=== PATIENT | male | born 1990 | race Caucasian/White ===

== ENCOUNTER 2023-12-09 22:16 | Emergency (ER) | payer MEDICAID, SELFPAY ==
[2023-12-09 22:19] VITALS: BP 124/76; PULSE 96; TEMP 37.4; O2SAT 98; BMI 24.2
[2023-12-09 22:22] VITALS: PULSE 91
--- NOTE | 2023-12-09 22:22 | ED.OVERDOSE1 ---
HPI HPI - Overdose General Chief Complaint: Overdose Stated Complaint: FENT OD Time Seen by Provider: 12/09/23 22:19 History of Present Illness HPI Narrative: fentanyl overdose. States he snorts the fentanyl. His parents found him unresponsive but breathing and injected Narcan to which he responded and they called [facility]. He now arrives awake.States he last overdosed a couple of years ago has multiple superficial sores on his chest , abdominal wall and face. 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 States he feels ok now and has no complaint. MD complaint: Reports accidental overdose Related Data Allergies Allergy/AdvReac Type Severity Reaction Status Date / Time No Known Drug Allergies Allergy Verified 12/09/23 22:23 Opioid HPI Opioid Management Most Recent Opioid Data: No Data to Display Review of Systems ROS Status of ROS 10 or more systems reviewed and unremarkable except as noted in history and below Exam Constitutional Vital Signs, click to edit/add: Last Vital Signs Temp 99.4 F 12/09/23 22:19 Pulse 88 12/09/23 23:07 Resp 18 12/09/23 23:07 BP 110/60 12/09/23 23:07 Pulse Ox 98 12/09/23 23:07 O2 Del Method Room Air 12/09/23 23:07 Common normals: no apparent distress, average body habitus, oriented x3, no limitations, healthy appearing, alert and well nourished Eye Common normals: PERRL, EOMs intact bilaterally and conjunctivae normal Respiratory Common normals: normal respiratory effort, no retractions, no use of accessory muscles and clear to auscultation bilaterally Cardio Common normals: regular rate, regular rhythm, S1 normal heart sound and S2 normal heart sound GI Common normals: Normal to inspection, nondistended, normoactive bowel sounds present, soft to palpation and non-tender Extremity Common normals: normal to inspection and full ROM Neuro Common normals: oriented x3, CN's II-XII intact bilaterally, moves all extremities and no focal motor deficits Psych Appearance: grossly normal Course Vital Signs Vital signs: Vital Signs Temperature 99.4 F 12/09/23 22:19 Pulse Rate 96 H 12/09/23 22:19 Respiratory Rate 16 12/09/23 22:19 Blood Pressure 124/76 12/09/23 22:19 Pulse Oximetry 98 12/09/23 22:19 Oxygen Delivery Method Room Air 12/09/23 22:19 Temperature 99.4 F 12/09/23 22:19 Pulse Rate 88 12/09/23 23:07 Respiratory Rate 18 12/09/23 23:07 Blood Pressure 110/60 12/09/23 23:07 Pulse Oximetry 98 12/09/23 23:07 Oxygen Delivery Method Room Air 12/09/23 23:07 MDM - Overdose MDM Narrative Medical decision making narrative: patient with history of fentanyl abuse. States he snorts but does not inject. parents found him breathing and drooling but unresponsive. His father gave him 2 doses of Narcan . one in each nostril and he woke up within 2 minutes. Arrives via [facility] asymptomatic. Labs with normal troponin but does have elevated creat. EKG is normal. Patient remains asymptomatic and discharged home with his parents. Advised to follow up with his doctor regarding his renal function Lab Data Labs: Lab Results 12/09/23 Range/Units 22:27 WBC 13.0 H (4.0-11.0) 10^3/uL RBC 4.31 L (4.70-6.10) 10^6/uL Hgb 12.6 L (14.0-18.0) g/dL Hct 38.1 L (42.0-54.0) % MCV 88.4 (80.0-94.0) fL MCH 29.2 (25.9-34.0) pg MCHC 33.1 (29.9-35.2) g/dL RDW 13.4 (11.0-15.0) % Plt Count 361 (150-450) 10^3/uL MPV 10.2 (9.5-13.5) fL Neut % (Auto) 61.9 (43.0-75.0) % Lymph % (Auto) 27.3 (20.5-60.0) % [place] % (Auto) 9.8 (1.7-12.0) % Eos % (Auto) 0.4 L (0.9-7.0) % Baso % (Auto) 0.3 (0.2-2.0) % Neut # (Auto) 8.0 H (1.4-6.5) 10^3/uL Lymph # (Auto) 3.5 (1.2-3.8) 10^3/uL [place] # (Auto) 1.3 H (0.3-0.8) 10^3/uL Eos # (Auto) 0.1 (0.0-0.7) 10^3/uL Baso # (Auto) 0.0 (0.0-0.1) 10^3/uL Abs Immat Gran (auto) 0.04 H (0.00-0.03) 10^3/uL Imm/Tot Granulo (auto) 0.3 (0.0-0.5) % Sodium 141 (136-145) mmol/L Potassium 4.2 (3.5-5.1) mmol/L Chloride 102 (98-107) mmol/L Carbon Dioxide 26.9 (21.0-32.0) mmol/L Anion Gap 16.3 BUN 18.0 (7.0-18.0) mg/dL Creatinine 1.38 H (0.70-1.30) mg/dL Est GFR ( Amer) >60 (>=60) Est GFR (Non-Af Amer) 59 L (>=60) BUN/Creatinine Ratio 13.0 Glucose 153 H (74-106) mg/dL Calcium 9.1 (8.5-10.1) mg/dL Troponin I High Sens 7.6 (4.0-76.1) pg/mL Discharge Plan Discharge Stand Alone Forms: Portal Instructions Chief Complaint: Overdose Clinical Impression: Acute kidney injury, Drug overdose Patient Disposition: Home, Self-Care Print Language: Serbian Instructions: Acute Kidney Injury (DC), Adult Overdose (ED) Additional Instructions: follow up with Dr Yeager next week for recheck of your kidneys Referrals: Andrade Yeager MD [Primary Care Provider] - 1 week
--- NOTE | 2023-12-09 22:25 | ECG_ITS ---
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
[2023-12-09 22:34] VITALS: O2SAT 96
--- NOTE | 2023-12-09 22:35 | PC.NURSE ---
Face bright red
[2023-12-09 22:36] VITALS: O2SAT 95
[2023-12-09 22:37] LABS: Basophils Percent Auto 0.3 % (0.2-2.0); Eosinophils Absolute Auto 0.1 10^3/uL (0.0-0.7); Eosinophils Percent Auto 0.4 % (0.9-7.0); Hematocrit 38.1 % (42.0-54.0); Hemoglobin 12.6 g/dL (14.0-18.0); Immature Granulocytes Abs Auto 0.04 10^3/uL (0.00-0.03); Immature Granulocytes Pct Auto 0.3 % (0.0-0.5); Lymphocytes Absolute Auto 3.5 10^3/uL (1.2-3.8); Lymphocytes Percent Auto 27.3 % (20.5-60.0); Mean Corpuscular HGB Conc 33.1 g/dL (29.9-35.2); Mean Corpuscular Hemoglobin 29.2 pg (25.9-34.0); Mean Corpuscular Volume 88.4 fL (80.0-94.0); Mean Platelet Volume 10.2 fL (9.5-13.5); Monocytes Absolute Auto 1.3 10^3/uL (0.3-0.8); Monocytes Percent Auto 9.8 % (1.7-12.0); Neutrophils Percent Auto 61.9 % (43.0-75.0); Platelet Count 361 10^3/uL (150-450); Red Blood Count 4.31 10^6/uL (4.70-6.10); Red Cell Distribution Width 13.4 % (11.0-15.0)
[2023-12-09 22:59] LABS: Anion Gap 16.3; Calcium 9.1 mg/dL (8.5-10.1); Carbon Dioxide 26.9 mmol/L (21.0-32.0); Chloride 102 mmol/L (98-107); Estimated GFR (African America >60 (>=60); Estimated GFR (Non-African Ame 59 (>=60); Glucose 153 mg/dL (74-106); Potassium 4.2 mmol/L (3.5-5.1); Sodium 141 mmol/L (136-145); Troponin I High Sensitivity 7.6 pg/mL (4.0-76.1)
[2023-12-09 23:07] VITALS: BP 110/60; PULSE 88; O2SAT 98
== END 2023-12-09 23:18 | disposition home or self-care (01) ==
PROVIDERS: Emergency Provider Internal Medicine; PCP Family Medicine
DX: T40.411A Poisoning by fentanyl or fentanyl analogs, accidental (unintentional), initial encounter (principal); N17.9 Acute kidney failure, unspecified
CPT/HCPCS: 36415; 80048; 84484; 85025; 93005; 99284

== ENCOUNTER 2024-04-27 18:06 | Emergency (ER) | payer MEDICAID, SELFPAY ==
[2024-04-27] VITALS (9 sets, daily range): BP systolic 112–121; BP diastolic 74–77; PULSE 83–111; TEMP 36.8; O2SAT 86–100; BMI 26.7
--- NOTE | 2024-04-27 18:19 | ED.GENADUL1 ---
HPI HPI - General Adult General Chief complaint: Psychiatric Symptoms Stated complaint: OVERDOSE Time Seen by Provider: 04/27/24 18:13 Source: patient Mode of arrival: law enforcement History of Present Illness HPI narrative: The patient to be evaluated in the ER for possible overdose after his father called the EMS. By the time the EMS arrived the patient was still awake he was not given Narcan at any time before arrival to the ER, the patient is mostly hitting himself with his hand and scratching his body, when left alone the patient falls asleep The patient not able to provide any history once he wakes up he just say you No ,to most of the question that he is asked and goes back to sleep Related Data Allergies Allergy/AdvReac Type Severity Reaction Status Date / Time No Known Drug Allergies Allergy Verified 12/09/23 22:23 Opioid HPI Opioid Management Most Recent Opioid Data: No Data to Display Review of Systems ROS Narrative Not able to provide review of system due to the patient clinical condition Exam Narrative Exam Narrative: Nurses notes and vital signs reviewed and patient is not hypoxic. General: Well-appearing and in no apparent distress. Skin: Warm, dry, no pallor noted. No rash. Head: Normocephalic, atraumatic. Neck: Supple, non-tender. Eye: Pupils are equal, round and pinpoint Ears, Nose, Mouth, and Throat: TM are clear, no nasal mucosal hypertrophy. Oral mucosa is moist, no posterior oropharynx erythema, uvula is mid-line Cardiovascular: Regular Rate and Rhythm without murmur, gallop or rub. Respiratory: No accessory muscle use or respiratory distress. Lungs are clear to auscultation, no wheezing, rales or rhonchi Chest Wall: no tenderness Back: No midline thoracic or lumbar vertebral tenderness. No CVA tenderness Musculoskeletal: normal ROM, no calf or popliteal tenderness, no lower extremity edema/swelling GI: Abdomen is soft, non-distended. Normal bowel sounds. No masses appreciated. No tenderness to palpation. No rebound, guarding, or rigidity noted. Neurological: A&O x1. No cranial nerve dysfunction observed. The patient moving upper and lower extremities with no difficulty Constitutional Vital Signs, click to edit/add: Last Vital Signs Temp 98.2 F 04/27/24 18:09 Pulse 111 H 04/27/24 18:09 Resp 8 L 04/27/24 18:09 Pulse Ox 90 L 04/27/24 18:09 O2 Del Method Room Air 04/27/24 18:09 Course Vital Signs Vital signs: Vital Signs Temperature 98.2 F 04/27/24 18:09 Pulse Rate 111 H 04/27/24 18:09 Respiratory Rate 8 L 04/27/24 18:09 Pulse Oximetry 90 L 04/27/24 18:09 Oxygen Delivery Method Room Air 04/27/24 18:09 Temperature 98.2 F 04/27/24 18:09 Pulse Rate 111 H 04/27/24 18:09 Respiratory Rate 8 L 04/27/24 18:09 Pulse Oximetry 90 L 04/27/24 18:09 Oxygen Delivery Method Room Air 04/27/24 18:09 Medical Decision Making MDM Narrative Medical decision making narrative: Upon arrival we did prepare for Narcan nasally but the patient is not desaturating he was just getting monitored Right now the patient will get a blood workup including CBC chemistry and ethanol level While monitoring the patient in case he needed Narcan will be given in case he is desaturating or becoming hypoxic Patient care will be transferred to Dr. Zuleta Discharge Plan Discharge Patient Disposition: Still a Patient
--- NOTE | 2024-04-27 18:20 | ECG_ITS ---
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
[2024-04-27] MEDS: NALOXONE HCL 2 MG/2 ML SYRINGE NS (18:29)
[2024-04-27 18:47] LABS: Basophils Absolute Auto 0.1 10^3/uL (0.0-0.1); Basophils Percent Auto 0.5 % (0.2-2.0); Eosinophils Absolute Auto 0.1 10^3/uL (0.0-0.7); Eosinophils Percent Auto 1.1 % (0.9-7.0); Hematocrit 45.4 % (42.0-54.0); Hemoglobin 15.1 g/dL (14.0-18.0); Immature Granulocytes Abs Auto 0.02 10^3/uL (0.00-0.03); Immature Granulocytes Pct Auto 0.2 % (0.0-0.5); Lymphocytes Absolute Auto 2.8 10^3/uL (1.2-3.8); Lymphocytes Percent Auto 28.8 % (20.5-60.0); Mean Corpuscular HGB Conc 33.3 g/dL (29.9-35.2); Mean Corpuscular Hemoglobin 29.5 pg (25.9-34.0); Mean Corpuscular Volume 88.8 fL (80.0-94.0); Mean Platelet Volume 10.5 fL (9.5-13.5); Monocytes Absolute Auto 0.7 10^3/uL (0.3-0.8); Monocytes Percent Auto 7.2 % (1.7-12.0); Neutrophils Absolute Auto 6.1 10^3/uL (1.4-6.5); Neutrophils Percent Auto 62.2 % (43.0-75.0); Platelet Count 391 10^3/uL (150-450); Red Blood Count 5.11 10^6/uL (4.70-6.10); Red Cell Distribution Width 13.1 % (11.0-15.0); White Blood Count 9.9 10^3/uL (4.0-11.0)
[2024-04-27 19:07] LABS: Alanine Aminotransferase 22 U/L (16-63); Albumin Globulin Ratio 1.2; Albumin Level 4.2 g/dL (3.4-5.0); Alkaline Phosphatase 91 U/L (46-116); Anion Gap 12.3; Aspartate Amino Transferase 20 U/L (15-37); BUN Creatinine Ratio 23.6; Bilirubin Total 0.3 mg/dL (0.2-1.0); Calcium 8.7 mg/dL (8.5-10.1); Carbon Dioxide 28.9 mmol/L (21.0-32.0); Chloride 104 mmol/L (98-107); Estimated GFR (African America >60 (>=60); Estimated GFR (Non-African Ame >60 (>=60); Ethanol 126 mg/dL; Globulin 3.4 g/dL; Glucose 105 mg/dL (74-106); Potassium 4.2 mmol/L (3.5-5.1); Sodium 141 mmol/L (136-145); Total Protein 7.6 g/dL (6.4-8.2)
== END 2024-04-27 20:06 | disposition home or self-care (01) ==
PROVIDERS: Emergency Provider Emergency Medicine; PCP Family Medicine
DX: T50.901A Poisoning by unspecified drugs, medicaments and biological substances, accidental (unintentional), initial encounter (principal)
CPT/HCPCS: 36415; 80053; 80320; 85025; 93005; 99284; J1230

== ENCOUNTER 2024-07-07 19:09 | Emergency (ER) | payer MEDICAID, SELFPAY ==
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
[2024-07-07 19:23] VITALS: PULSE 101; TEMP 36.6; O2SAT 97; BMI 26.6
--- NOTE | 2024-07-07 19:44 | ED_ITS ---
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 He states the symptoms started approximately 1 week ago when he had a peoples on his leg. He states he popped it and afterwards he got several more. He continued to pop them. He has had some drainage from them but is not having any purulent drainage at this time. He denies any fever. He states he has had abscesses in the past but has never had an out break of multiple small abscesses as he does now. He has approximately 10 opened flat pustules on the right lateral lower leg with some local erythema and approximately 15-20 small open flat abscesses on the left lateral leg with local erythema. He denies a history of MRSA. He denies any chest pain or shortness of breath. He denies any body aches. Related Data Home Medications ?Medication ?Instructions ?Recorded ?Confirmed No Known Home Medications 07/07/24 07/07/24 Allergies Allergy/AdvReac Type Severity Reaction Status Date / Time No Known Drug Allergies Allergy Verified 07/07/24 19:23 Review of Systems ROS Status of ROS 10 or more systems reviewed and unremark able except as noted in history and below PFSH PFSH Social History Little interest or pleasure in doing things: not at all Feeling down, depressed, or hopeless: not at all Exam Narrative Exam Narrative: Vital signs and Nursing Notes reviewed: Patient is afebrile, he is mildly tachycardic with a pulse of 101, he is not hypoxic with pulse ox of 97% on room air General: Awake, alert, oriented, no acute distress, lying comfortably on the stretcher HEENT: Normocephalic atraumatic, mucous membranes are moist and pink, eyes are clear, normal conjunctiva, vision is grossly intact Neck: Supple, no meningeal signs, no anterior or posterior cervical lymphadenopathy Chest: Lungs are clear to auscultation with good air entry, there is no wheezing rhonchi or rales appreciated no accessory muscle use, patient is speaking in complete sentences-no chest wall tenderness to palpation CVS: Regular rate and rhythm S1-S2, no murmurs rubs or gallops, pulses are brisk and equal bilaterally ABD: Soft, nondistended, nontender, no rebound guarding or rigidity, bowel sounds are normal, no pulsatile masses appreciated Extremities: On the right lateral lower leg there is a cluster of erythematous open sores which appear to be already expressed small abscesses with local erythema. There is no lymphangitic streaking. There are multiple healed sores on both extremities. The patient also has a cluster on the left lateral thigh where there is approximately 15-20 small open sores with local erythema and induration. No appreciable drainage was able to be expressed for culture purposes Skin: As above in the extremity exam Neuro: No focal deficits Constitutional Vital Signs, click to edit/add: Last Vital Signs Temp 97.8 F 07/07/24 19:23 Pulse 101 H 07/07/24 19:23 Resp 19 07/07/24 19:23 Pulse Ox 97 07/07/24 19:23 O2 Del Method Room Air 07/07/24 19:23 Course Vital Signs Vital signs: Vital Signs Temperature 97.8 F 07/07/24 19:23 Pulse Rate 101 H 07/07/24 19:23 Respiratory Rate 19 07/07/24 19:23 Pulse Oximetry 97 07/07/24 19:23 Oxygen Delivery Method Room Air 07/07/24 19:23 Temperature 97.8 F 07/07/24 19:23 Pulse Rate 101 H 07/07/24 19:23 Respiratory Rate 19 07/07/24 19:23 Pulse Oximetry 97 07/07/24 19:23 Oxygen Delivery Method Room Air 07/07/24 19:23 MDM - Skin/Abscess/Foreign Bdy MDM Narrative Medical decision making narrative: This 34-year-old male with a history of substance abuse but who denies IV drug use currently or in the past presents for evaluation of a skin rash on his right lower lateral leg and left upper lateral thigh that has been present for the past 5 to 7 days. 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 He denies a history of MRSA. He has clusters of open areas that appear to be small abscesses in both of these areas with local erythema. There was no active drainage but the patient states he has been squeezing them with purulent drainage. He has not had a fever. He denies any body aches. There were no areas to culture. An IV was placed and he was medicated with 900 mg of IV clindamycin. Routine labs are reviewed. He has an mildly elevated white count of 12.5 with a stable hemoglobin. Comprehensive metabolic profile is normal with a mild elevation in his glucose at 145 and mild elevation of creatinine at 1.37. He is not having any nausea or vomiting or sign of acute dehydration. He does not have a history of diabetes. He will be discharged home with a prescription for clindamycin. I also encouraged him to soak in a warm bathtub with Epsom salts to help these areas organize and drain. I encouraged him to follow-up with his family physician in the next 3 to 4 days for recheck and return to the emergency department for fever, worsening symptoms or any concerns. Lab Data Labs: Lab Results 07/07/24 Range/Units 20:05 WBC 12.5 H (4.0-11.0) 10^3/uL RBC 4.84 (4.70-6.10) 10^6/uL Hgb 14.3 (14.0-18.0) g/dL Hct 41.9 L (42.0-54.0) % MCV 86.6 (80.0-94.0) fL MCH 29.5 (25.9-34.0) pg MCHC 34.1 (29.9-35.2) g/dL RDW 12.2 (11.0-15.0) % Plt Count 365 (150-450) 10^3/uL MPV 9.9 (9.5-13.5) fL Neut % (Auto) 67.5 (43.0-75.0) % Lymph % (Auto) 21.7 (20.5-60.0) % [place] % (Auto) 9.3 (1.7-12.0) % Eos % (Auto) 0.7 L (0.9-7.0) % Baso % (Auto) 0.5 (0.2-2.0) % Neut # (Auto) 8.4 H (1.4-6.5) 10^3/uL Lymph # (Auto) 2.7 (1.2-3.8) 10^3/uL [place] # (Auto) 1.2 H (0.3-0.8) 10^3/uL Eos # (Auto) 0.1 (0.0-0.7) 10^3/uL Baso # (Auto) 0.1 (0.0-0.1) 10^3/uL Abs Immat Gran (auto) 0.04 H (0.00-0.03) 10^3/uL Imm/Tot Granulo (auto) 0.3 (0.0-0.5) % Sodium 140 (136-145) mmol/L Potassium 3.9 (3.5-5.1) mmol/L Chloride 100 (98-107) mmol/L Carbon Dioxide 28.0 (21.0-32.0) mmol/L Anion Gap 15.9 BUN 26.0 H (7.0-18.0) mg/dL Creatinine 1.37 H (0.70-1.30) mg/dL Est GFR ( Amer) >60 (>=60 mL/min/1.73m^2) Est GFR (Non-Af Amer) 59 L (>=60 mL/min/1.73m^2) BUN/Creatinine Ratio 19.0 Glucose 145 H (74-106) mg/dL Calcium 9.6 (8.5-10.1) mg/dL Total Bilirubin 0.6 (0.2-1.0) mg/dL AST 21 (15-37) U/L ALT 25 (16-63) U/L Alkaline Phosphatase 94 (46-116) U/L Total Protein 8.0 (6.4-8.2) g/dL Albumin 4.1 (3.4-5.0) g/dL Globulin 3.9 g/dL Albumin/Globulin Ratio 1.1 Discharge Plan Discharge Chief Complaint: Skin/Abscess/Foreign Body Clinical Impression: Abscess of skin or subcutaneous tissue, Cellulitis Patient Disposition: Home, Self-Care Time of Disposition Decision: 20:40 Condition: Good Prescriptions / Home Meds: No Action No Known Home Medications Print Language: Maltese Instructions: Cellulitis (ED), Abscess (ED), Abscess Follow-up (ED), Warm Compress or Soak (ED) Referrals: Andrade Yeager MD [Primary Care Provider] - 1 week
[2024-07-07] MEDS: KETOROLAC TROMETHAMINE 30 MG/ML VIAL IVP (20:24)
[2024-07-07] MEDS: CLINDAMYCIN PHOSPHATE/D5W 900 MG/50 ML PREMIX 100 MG IV (20:25)
[2024-07-07 20:27] LABS: Basophils Absolute Auto 0.1 10^3/uL (0.0-0.1); Basophils Percent Auto 0.5 % (0.2-2.0); Eosinophils Absolute Auto 0.1 10^3/uL (0.0-0.7); Eosinophils Percent Auto 0.7 % (0.9-7.0); Hematocrit 41.9 % (42.0-54.0); Hemoglobin 14.3 g/dL (14.0-18.0); Immature Granulocytes Abs Auto 0.04 10^3/uL (0.00-0.03); Immature Granulocytes Pct Auto 0.3 % (0.0-0.5); Lymphocytes Absolute Auto 2.7 10^3/uL (1.2-3.8); Lymphocytes Percent Auto 21.7 % (20.5-60.0); Mean Corpuscular HGB Conc 34.1 g/dL (29.9-35.2); Mean Corpuscular Hemoglobin 29.5 pg (25.9-34.0); Mean Corpuscular Volume 86.6 fL (80.0-94.0); Mean Platelet Volume 9.9 fL (9.5-13.5); Monocytes Absolute Auto 1.2 10^3/uL (0.3-0.8); Monocytes Percent Auto 9.3 % (1.7-12.0); Neutrophils Absolute Auto 8.4 10^3/uL (1.4-6.5); Neutrophils Percent Auto 67.5 % (43.0-75.0); Platelet Count 365 10^3/uL (150-450); Red Blood Count 4.84 10^6/uL (4.70-6.10); Red Cell Distribution Width 12.2 % (11.0-15.0); White Blood Count 12.5 10^3/uL (4.0-11.0)
[2024-07-07 20:42] LABS: Alanine Aminotransferase 25 U/L (16-63); Albumin Globulin Ratio 1.1; Albumin Level 4.1 g/dL (3.4-5.0); Alkaline Phosphatase 94 U/L (46-116); Anion Gap 15.9; Aspartate Amino Transferase 21 U/L (15-37); Bilirubin Total 0.6 mg/dL (0.2-1.0); Calcium 9.6 mg/dL (8.5-10.1); Chloride 100 mmol/L (98-107); Estimated GFR (African America >60 (>=60 mL/min/1.73m^2); Estimated GFR (Non-African Ame 59 (>=60 mL/min/1.73m^2); Globulin 3.9 g/dL; Glucose 145 mg/dL (74-106); Potassium 3.9 mmol/L (3.5-5.1); Sodium 140 mmol/L (136-145)
[2024-07-07 21:10] VITALS: PULSE 70; O2SAT 96
== END 2024-07-07 21:13 | disposition home or self-care (01) ==
PROVIDERS: Emergency Provider Emergency Medicine; PCP Family Medicine
DX: L02.416 Cutaneous abscess of left lower limb (principal); L02.415 Cutaneous abscess of right lower limb; L03.116 Cellulitis of left lower limb; L03.115 Cellulitis of right lower limb; F19.11 Other psychoactive substance abuse, in remission
CPT/HCPCS: 36415; 80053; 85025; 96365; 96375; 99284; J0736; J1885